=== PATIENT | female | born 1980 | race American Indian/Alaskan Native ===

== ENCOUNTER 2017-09-11 16:49 | Emergency (ER) | payer MEDICAID ==
--- NOTE | 2017-09-11 19:05 | XRay Report ---
FINAL REPORT EXAM: XR HAND 3+V LT HISTORY: injury, pain TECHNIQUE: Three views left hand Comparison: None FINDINGS: The region of pain is not demarcated. There appears to be a comminuted fracture of the base of the 4th metacarpal of the junction with the hamate. There is mild soft tissue swelling over the hypo thenar eminence. There is mild irregularity of the base of the 2nd metacarpal which does not persist on the oblique image and is therefore likely artifactual. All of the exam images were performed portably. The distal digits are intact. There is calcification along the palmar aspect of the 1st proximal phalanx. There is erosion of the radial aspect of the 2nd and 3rd metacarpal heads. IMPRESSION: Portable exam. There appears to be comminuted fracture of the base of the 4th metacarpal at the junction with the hamate. Recommend nonportable exam follow-up or cross-sectional imaging. Erosion of the 2nd and 3rd digit metacarpal heads along the radial aspect. This finding can be compatible with rheumatoid arthritis. Recommend correlation clinically.
[2017-09-12] MEDS ORDERED: TYLENOL PO ONE (03:03)
[2017-09-12] MEDS ORDERED: MOTRIN PO ONE (03:03)
--- NOTE | 2017-09-12 04:37 | Emergency Department Report ---
ED General Adult HPI - General Chief complaint: Extremity Injury, Upper Stated complaint: LEFT HAND PAIN Time Seen by Provider: 09/12/17 02:50 Source: patient Mode of arrival: Ambulatory Limitations: No Limitations - History of Present Illness Initial comments: Patient is a 36-year-old female no suicidal past medical history who presents with left hand pain. 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 moving makes it worse nothing makes it better. He states that she has an achy type of pain and it occurred somewhat after the fall. Patient still able to use her hand to write however when she is working and she has pain. Patient denies having any injury to any other area of her body. Severity scale (0 -10): 10 - Related Data Home Medications Medication Instructions Recorded Confirmed Last Taken Ferric Sulfate 325 mg PO BID 06/03/13 09/28/13 09/28/13 Previous Rx's Medication Instructions Recorded Last Taken Type Methocarbamol [Robaxin] 750 mg PO BID #10 tab 09/29/13 Unknown Rx HYDROcodone/ACETAMINOPHEN [[place] 1 each PO Q6H PRN #20 tablet 03/02/14 Unknown Rx 5/325 Tablet] Ibuprofen [Motrin] 600 mg PO Q8H PRN #50 tablet 02/11/16 Unknown Rx traMADol [Ultram 50 MG tab] 50 mg PO Q6HR PRN #12 tablet 02/11/16 Unknown Rx HYDROcodone/APAP 5-325 [[place] 1 each PO Q6HR PRN #15 tablet 09/12/17 Unknown Rx 5/325] Naproxen 250 mg PO BID #20 tablet 09/12/17 Unknown Rx Allergies Allergy/AdvReac Type Severity Reaction Status Date / Time No Known Allergies Allergy Verified 09/11/17 16:57 ED Review of Systems ROS: Stated complaint: LEFT HAND PAIN Other details as noted in HPI Constitutional: denies: chills, fever Eyes: denies: eye pain, eye discharge, vision change ENT: denies: ear pain, throat pain Respiratory: denies: cough, shortness of breath, wheezing Cardiovascular: denies: chest pain, palpitations Endocrine: no symptoms reported Gastrointestinal: denies: abdominal pain, nausea, diarrhea Genitourinary: denies: urgency, dysuria, discharge Musculoskeletal: as per HPI. denies: back pain, joint swelling, arthralgia Skin: denies: rash, lesions Neurological: denies: headache, weakness, paresthesias Psychiatric: denies: anxiety, depression Hematological/Lymphatic: denies: easy bleeding, easy bruising ED Past Medical Hx - Past Medical History Previous Medical History?: No Additional medical history: Anemia - Surgical History Additional Surgical History: Gastric bypass-2008, c section x2 - Social History Smoking Status: Never Smoker Substance Use Type: None - Medications Home Medications: Home Medications Medication Instructions Recorded Confirmed Last Taken Type Ferric Sulfate 325 mg PO BID 06/03/13 09/28/13 09/28/13 History Methocarbamol [Robaxin] 750 mg PO BID #10 tab 09/29/13 Unknown Rx HYDROcodone/ACETAMINOPHEN [[place] 1 each PO Q6H PRN #20 tablet 03/02/14 Unknown Rx 5/325 Tablet] Ibuprofen [Motrin] 600 mg PO Q8H PRN #50 tablet 02/11/16 Unknown Rx traMADol [Ultram 50 MG tab] 50 mg PO Q6HR PRN #12 tablet 02/11/16 Unknown Rx HYDROcodone/APAP 5-325 [[place] 1 each PO Q6HR PRN #15 tablet 09/12/17 Unknown Rx 5/325] Naproxen 250 mg PO BID #20 tablet 09/12/17 Unknown Rx ED Physical Exam - General Limitations: No Limitations General appearance: alert, in no apparent distress - Head Head exam: Present: atraumatic, normocephalic - Eye Eye exam: Present: normal appearance - ENT ENT exam: Present: mucous membranes moist - Neck Neck exam: Present: normal inspection - Respiratory Respiratory exam: Present: normal lung sounds bilaterally. Absent: respiratory distress - Cardiovascular Cardiovascular Exam: Present: regular rate, normal rhythm. Absent: systolic murmur, diastolic murmur, rubs, gallop - GI/Abdominal GI/Abdominal exam: Present: soft, normal bowel sounds - Extremities Exam Extremities exam: Present: other (fourth metacarpal tenderness) - Back Exam Back exam: Present: normal inspection - Neurological Exam Neurological exam: Present: alert, oriented X3 - Psychiatric Psychiatric exam: Present: normal affect, normal mood - Skin Skin exam: Present: warm, dry, intact, normal color. Absent: rash ED Course Vital Signs 09/11/17 09/12/17 09/12/17 16:58 03:22 03:24 Temperature 98.5 F Pulse Rate 85 Respiratory 18 18 18 Rate Blood Pressure 127/81 O2 Sat by Pulse 100 Oximetry - Orthopedic Splinting/Casting Injury #1 Side: left Upper Extremity Injury Location: hand Upper Extremity Immobilizer: ulnar gutter Additional Comments: Patient tolerated procedure well. ED Medical Decision Making - Radiology Data Radiology results: report reviewed, image reviewed Xray left hand: comminuted fracture of fourth metacarpal - Medical Decision Making Chief medical diagnosis: Fourth metacarpal fracture Differential medical diagnosis: Osteoarthritis, metacarpal fracture, nerve injury next I will get X-RAY, ORAL PAIN MEDICATION and splint the patient's wrist. Patient is feeling better with splint on I will give patient f/u with orthopedic surgeon and I will send patient home. Additional verbal discharge instructions were given. Patient agrees with the plan Critical care attestation.: If time is entered above; I have spent that time in minutes in the direct care of this critically ill patient, excluding procedure time. ED Disposition Clinical Impression: Fracture of fourth metacarpal bone Qualifiers: Encounter type: initial encounter Fracture type: closed Metacarpal location: base Fracture alignment: nondisplaced Laterality: left Qualified Code(s): S62.345A - Nondisplaced fracture of base of fourth metacarpal bone, left hand, initial encounter for closed fracture Fall Qualifiers: Encounter type: initial encounter Qualified Code(s): W19.XXXA - Unspecified fall, initial encounter Disposition: DC- TO HOME OR SELFCARE Is pt being admited?: No Does the pt Need Aspirin: No Condition: Stable Instructions: Hand Fracture (ED) Prescriptions: HYDROcodone/APAP 5-325 [[place] 5/325] 1 each PO Q6HR PRN #15 tablet PRN Reason: Pain Naproxen 250 mg PO BID #20 tablet Referrals: BRIANA RIVER MD [Primary Care Provider] - 3-5 Days NICHOLE POWER MD [Staff Physician] - 3-5 Days MANDY FENG MD [Staff Physician] - 3-5 Days CAITY GORMAN MD [Staff Physician] - 3-5 Days Forms: Work/School Release Form(ED)
[2017-09-12 04:47] VITALS: BP 125/78
== END 2017-09-12 05:15 | disposition home or self-care (01) ==
LOC: ED 16:49
DX: S62.345A Nondisplaced fracture of base of fourth metacarpal bone, left hand, initial encounter for closed fracture (principal); Z98.84 Bariatric surgery status; W19.XXXA Unspecified fall, initial encounter; Y93.89 Activity, other specified; Y99.8 Other external cause status; Y92.89 Other specified places as the place of occurrence of the external cause
CPT/HCPCS: 99283

== ENCOUNTER 2017-12-22 18:12 | Emergency (ER) | payer MEDICAID ==
[2017-12-22 19:17] VITALS: BP 131/82
[2017-12-22] MEDS ORDERED: TYLENOL PO ONE (19:34)
[2017-12-22] MEDS ORDERED: FLEXERIL PO ONE (19:34)
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
[2017-12-22 19:50] LABS: Bacteria,Urine 2+ /HPF (Negative); Bilirubin,Urine NEG (Negative); Blood,Urine NEG (Negative); Color,Urine Yellow (Yellow); Protein,Urine <15 mg/dL mg/dL (Negative); Urobilinogen,Urine < 2.0 mg/dL (<2.0)
== END 2017-12-22 20:00 | disposition home or self-care (01) ==
LOC: ED 18:12
DX: O26.893 Other specified pregnancy related conditions, third trimester (principal); M54.9 Dorsalgia, unspecified; O99.013 Anemia complicating pregnancy, third trimester; Z3A.33 33 weeks gestation of pregnancy; V87.7XXA Person injured in collision between other specified motor vehicles (traffic), initial encounter; Y93.89 Activity, other specified; Y92.89 Other specified places as the place of occurrence of the external cause; Y99.8 Other external cause status
CPT/HCPCS: 81001; 99283

== ENCOUNTER 2017-12-22 21:11 | Outpatient (CLI) | payer MEDICAID ==
[2017-12-22 23:03] LABS: Hematocrit 30.5 % (30.3-42.9); Hemoglobin 9.8 gm/dl (10.1-14.3); Mean Corpuscular HGB Conc 32 % (30-34); Mean Corpuscular Hemoglobin 28 pg (28-32); Mean Corpuscular Volume 87 fl (79-97); Platelet Count 196 K/mm3 (140-440); Red Blood Count 3.49 M/mm3 (3.65-5.03); Red Cell Distribution Width 16.3 % (13.2-15.2)
[2017-12-22 23:20] VITALS: BP 123/84
--- NOTE | 2017-12-22 23:43 | Ultrasound Report ---
FINAL REPORT EXAM: US OB CLINICAL INDICATIONS: PLACENTA SCAN FINDINGS: Real-time ultrasound of the pelvis was performed with attention to the gravid uterus and placenta. There is an anterior placenta, grade 1. There is no evidence of placental abruption or placenta previa. The fetus lies in transverse lie. cardiac activity is present at 140 beats per minute. Amniotic fluid index is 10.3 cm which is within normal limits. IMPRESSION: NO PLACENTAL ABRUPTION
== END 2017-12-23 00:10 | disposition home or self-care (01) ==
LOC: TRG 21:11 → LD 21:17 → TRG 12-23 00:10
PROVIDERS: ATTEND Obstetrics & Gynecology
DX: O09.523 Supervision of elderly multigravida, third trimester (principal); O47.03 False labor before 37 completed weeks of gestation, third trimester; Z3A.33 33 weeks gestation of pregnancy
CPT/HCPCS: 36415; 59025; 76815; 85027; 86850; 86900; 86901

== ENCOUNTER 2018-02-17 12:57 | Emergency (ER) | payer MEDICAID ==
--- NOTE | 2018-02-17 14:05 | Emergency Department Report ---
Chief Complaint: Abdominal Pain Stated Complaint: PAIN AT Time Seen by Provider: 02/17/18 13:55 - HPI History of Present Illness: 37-year-old AA female presents to the emergency department with complaint of pain at the site that she had done from February 01. She says that she followed up with the [facility], but not the particular surgeon, last and says that she brought up the issue with her discomfort but "they did not do much about it." She previously had been on some Percocet but that has run out. To deal with the pain she says she has been taking extra 800 mg ibuprofen, some 2 at a time. She denies any bleeding, discharge or redness at the incision site. She denies any fever, nausea, vomiting. - ROS Review of Systems: Positive for abdominal pain Negative for nausea, vomiting, vaginal bleeding or discharge, dysuria - Exam Vital Signs: Vital Signs 02/17/18 02/17/18 13:23 13:51 Temperature 99.5 F Pulse Rate 77 Respiratory 16 16 Rate Blood Pressure 138/80 O2 Sat by Pulse 100 Oximetry Physical Exam: Heart and lungs sounds are normal to auscultation. There is some repeat is tenderness to palpation to the lower abdominal wall. MSE screening note: Focused history and physical exam performed. Due to findings the following was ordered: I will order a CBC and a BMP. Potentially the patient will have a 2 view abdominal x-ray. ED Disposition for MSE Condition: Stable Instructions: Abdominal Pain (ED)
[2018-02-17 14:31] LABS: Bacteria,Urine 1+ /HPF (Negative); Bilirubin,Urine NEG (Negative); Blood,Urine LG (Negative); Color,Urine Yellow (Yellow); Mucus,Urine FEW /HPF; Urobilinogen,Urine < 2.0 mg/dL (<2.0)
[2018-02-17] MEDS ORDERED: PERCOCET 5/325 PO ONE (14:35)
[2018-02-17 15:08] LABS: Basophils % (Auto) 0.3 % (0.0-1.8); Eosinophils # (Auto) 0.2 K/mm3 (0.0-0.4); Eosinophils % (Auto) 2.4 % (0.0-4.3); Hemoglobin 10.7 gm/dl (10.1-14.3); Lymphocytes # (Auto) 1.4 K/mm3 (1.2-5.4); Lymphocytes % (Auto) 20.9 % (13.4-35.0); Mean Corpuscular HGB Conc 33 % (30-34); Mean Corpuscular Hemoglobin 28 pg (28-32); Mean Corpuscular Volume 84 fl (79-97); Monocytes # (Auto) 0.4 K/mm3 (0.0-0.8); Monocytes % (Auto) 6.7 % (0.0-7.3); Platelet Count 284 K/mm3 (140-440); Red Cell Distribution Width 15.4 % (13.2-15.2)
[2018-02-17 15:18] LABS: BUN/Creatinine Ratio 12; Blood Urea Nitrogen 6 mg/dL (7-17); Calcium 8.4 mg/dL (8.4-10.2); Hemolysis Index 4
[2018-02-17] MEDS ORDERED: NACL 0.9% 1000 ML 1,000 ML IV ONE (16:22)
[2018-02-17] MEDS ORDERED: TORADOL IV ONE (16:56)
[2018-02-17 17:51] VITALS: BP 151/81
--- NOTE | 2018-02-17 18:00 | Emergency Department Report ---
ED Abdominal Pain HPI - General Chief Complaint: Abdominal Pain Stated Complaint: PAIN AT Time Seen by Provider: 02/17/18 13:55 Source: patient Mode of arrival: Ambulatory Limitations: No Limitations - History of Present Illness Initial Comments: This is a 37-year-old female nontoxic, well nourished in appearance, no acute signs of distress presents to the ED with c/o of pelvic pain status post C- section that was done on 02/01/2018. 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 Patient stated pain is aching and worsening when touched to the area. Patient stated she was prescribed antibiotics that she finished. Patient denies any radiation of pain. Patient denies any nausea, vomiting, chest pain, shortness of breathe, fever, chills, headache, stiff neck, back pain, urinary symptoms, numbness or tingling. Patient denies any redness or swelling or pus in the surgical site. Patient denies any allergies or PMH. MD Complaint: abdominal pain -: week(s) (2) Radiation: none Migration to: no migration Severity scale (0 -10): 8 Quality: aching Consistency: constant Improves With: rest Worsens With: other (palpation) Associated Symptoms: denies other symptoms. denies: nausea, vomiting, diarrhea , fever, chills, constipation, dysuria, hematemesis, hematochezia, melena, hematuria, anorexia, syncope - Related Data Home Medications Medication Instructions Recorded Confirmed Last Taken Ferric Sulfate 325 mg PO BID 06/03/13 12/23/17 12/22/17 Pnv,Calcium 72/Iron/Folic Acid 12/23/17 12/22/17 08:30 [Pnv Plus Multivit Tab] Previous Rx's Medication Instructions Recorded Last Taken Type Methocarbamol [Robaxin] 750 mg PO BID #10 tab 09/29/13 Unknown Rx HYDROcodone/ACETAMINOPHEN [[place] 1 each PO Q6H PRN #20 tablet 03/02/14 Unknown Rx 5/325 Tablet] Ibuprofen [Motrin] 600 mg PO Q8H PRN #50 tablet 02/11/16 Unknown Rx traMADol [Ultram 50 MG tab] 50 mg PO Q6HR PRN #12 tablet 02/11/16 12/22/17 08: 30 Rx HYDROcodone/APAP 5-325 [[place] 1 each PO Q6HR PRN #15 tablet 09/12/17 Unknown Rx 5/325] Naproxen 250 mg PO BID #20 tablet 09/12/17 Unknown Rx Cyclobenzaprine [Flexeril 10 MG 10 mg PO ONCE #10 tablet 12/22/17 Unknown Rx TAB] Acetaminophen/Codeine [Tylenol 1 tab PO Q6H PRN #15 tab 02/17/18 Unknown Rx /Codeine # 3 tab] Ciprofloxacin HCl [Ciprofloxacin 500 mg PO Q12HR #14 tab 02/17/18 Unknown Rx TAB] Ibuprofen [Motrin] 600 mg PO Q8H PRN #30 tablet 02/17/18 Unknown Rx Allergies Allergy/AdvReac Type Severity Reaction Status Date / Time No Known Allergies Allergy Verified 09/11/17 16:57 ED Review of Systems ROS: Stated complaint: PAIN AT Other details as noted in HPI Constitutional: denies: chills, fever Eyes: denies: eye pain, eye discharge, vision change ENT: denies: ear pain, throat pain Respiratory: denies: cough, shortness of breath, wheezing Cardiovascular: denies: chest pain, palpitations Endocrine: no symptoms reported Gastrointestinal: abdominal pain. denies: nausea, diarrhea Genitourinary: denies: urgency, dysuria, discharge Musculoskeletal: denies: back pain, joint swelling, arthralgia Skin: denies: rash, lesions Neurological: denies: headache, weakness, paresthesias Psychiatric: denies: anxiety, depression Hematological/Lymphatic: denies: easy bleeding, easy bruising ED Past Medical Hx - Past Medical History Hx Hypertension: No Hx Diabetes: No Hx Deep Vein Thrombosis: No Hx Renal Disease: No Hx Sickle Cell Disease: No Hx Seizures: No Hx Asthma: No Hx HIV: No Additional medical history: Anemia - Surgical History Additional Surgical History: Gastric bypass-2007, c section x3 - Social History Smoking Status: Never Smoker Substance Use Type: None - Medications Home Medications: Home Medications Medication Instructions Recorded Confirmed Last Taken Type Ferric Sulfate 325 mg PO BID 06/03/13 12/23/17 12/22/17 History Methocarbamol [Robaxin] 750 mg PO BID #10 tab 09/29/13 12/23/17 Unknown Rx HYDROcodone/ACETAMINOPHEN [[place] 1 each PO Q6H PRN #20 tablet 03/02/14 Unknown Rx 5/325 Tablet] Ibuprofen [Motrin] 600 mg PO Q8H PRN #50 tablet 02/11/16 12/23/17 Unknown Rx traMADol [Ultram 50 MG tab] 50 mg PO Q6HR PRN #12 tablet 02/11/16 12/23/1712/22 08:30 Rx HYDROcodone/APAP 5-325 [[place] 1 each PO Q6HR PRN #15 tablet 09/12/17 12/23/17 Unknown Rx 5/325] Naproxen 250 mg PO BID #20 tablet 09/12/17 12/23/17 Unknown Rx Cyclobenzaprine [Flexeril 10 MG 10 mg PO ONCE #10 tablet 12/22/17 12/23/17 Unknown Rx TAB] Pnv,Calcium 72/Iron/Folic Acid 12/23/17 12/22/17 08:30 History [Pnv Plus Multivit Tab] Acetaminophen/Codeine [Tylenol 1 tab PO Q6H PRN #15 tab 02/17/18 Unknown Rx /Codeine # 3 tab] Ciprofloxacin HCl [Ciprofloxacin 500 mg PO Q12HR #14 tab 02/17/18 Unknown Rx TAB] Ibuprofen [Motrin] 600 mg PO Q8H PRN #30 tablet 02/17/18 Unknown Rx ED Physical Exam - General Limitations: No Limitations General appearance: alert, in no apparent distress - Head Head exam: Present: atraumatic, normocephalic - Eye Eye exam: Present: normal appearance Pupils: Present: normal accommodation - ENT ENT exam: Present: normal exam, mucous membranes moist - Neck Neck exam: Present: normal inspection, full ROM. Absent: tenderness, meningismus, lymphadenopathy - Respiratory Respiratory exam: Present: normal lung sounds bilaterally. Absent: respiratory distress, wheezes, rales, rhonchi, stridor, chest wall tenderness, accessory muscle use, decreased breath sounds, prolonged expiratory - Cardiovascular Cardiovascular Exam: Present: regular rate, normal rhythm, normal heart sounds. Absent: bradycardia, tachycardia, irregular rhythm, systolic murmur, diastolic murmur, rubs, gallop - GI/Abdominal GI/Abdominal exam: Present: soft, tenderness (incisonal region), normal bowel sounds, other (well healing incision site with no dagoberto present. No deshince noted. No swelling, redness, pus, or drainage. No surrounding cellulitis noted.) . Absent: distended, guarding, rebound, rigid, diminished bowel sounds - Expanded GI/Abdominal Exam Expanded GI/Abdominal exam: Absent: psoas sign, obturator sign, heel tap sign, Amaro's sign, Rovsing's sign, tenderness at Mcbur[place]'s Point, ascites - Rectal Rectal exam: Present: deferred - Extremities Exam Extremities exam: Present: normal inspection, full ROM, normal capillary refill - Back Exam Back exam: Present: normal inspection, full ROM - Neurological Exam Neurological exam: Present: alert, oriented X3, normal gait - Psychiatric Psychiatric exam: Present: normal affect, normal mood - Skin Skin exam: Present: warm, dry, intact, normal color. Absent: rash ED Course Vital Signs 02/17/18 02/17/18 02/17/18 13:23 13:51 14:39 Temperature 99.5 F Pulse Rate 77 Respiratory 16 16 16 Rate Blood Pressure 138/80 Blood Pressure [Left] O2 Sat by Pulse 100 Oximetry 02/17/18 02/17/18 17:05 17:50 Temperature 100 F H Pulse Rate 72 Respiratory 16 16 Rate Blood Pressure Blood Pressure 151/81 [Left] O2 Sat by Pulse 100 Oximetry - Reevaluation(s) Reevaluation #1: 02/17/18 18:01 Patient is speaking in full sentences with no signs of distress noted. - Consultations Consultation #1: 02/17/18 18:01 Patient has been consulted with Dr. Gentile about patient history, physical exam, and labs/CT results and examined and screened patient and agrees to ED plan of care and discharge plan of care. ED Medical Decision Making - Lab Data Result diagrams: 02/17/18 14:23 02/17/18 14:23 - Medical Decision Making This is a 37-year-old female that presents with abdominal pain, UTI, and constipation. Patient stable was examined by me. There is slight abdominal tenderness in the incisional site. No rebound tenderness. Labs obtained. No signs cellulitis. Well healing surgical site. Xray of abdomen and CT abdomen/ pelvis with contrast obtained and dictated by the radiologist Mike Rider from [facility] and report faxed with impression of mild constipation and a large uterus with prominent endometrial canal or endometrium. Patient received 1L of normal saline and Toradol which patient stated symptoms has resolved and subsided. A by mouth challenge of apple juice had been obtained and patient tolerated well with no nausea vomiting. Patient discharged with Cipro and Tylenol with codeine and was instructed not to operate any machinery due to possible drowsiness.. Patient was instructed to increase hydration. Patient was referred to Follow-up with a SAP INTEGRATION ARCHITECT Doctor in 3-5 days or if symptoms worsen and continue return to emergency room as soon as possible. At time of discharge, the patient does not seem toxic or ill in appearance. No acute signs of distress noted. Patient agrees to discharge treatment plan of care. No further questions noted by the patient. Critical care attestation.: If time is entered above; I have spent that time in minutes in the direct care of this critically ill patient, excluding procedure time. ED Disposition Clinical Impression: Pain at surgical site UTI (urinary tract infection) Qualifiers: Urinary tract infection type: site unspecified Hematuria presence: with hematuria Qualified Code(s): N39.0 - Urinary tract infection, site not specified ; R31.9 - Hematuria, unspecified Abdominal pain Qualifiers: Abdominal location: unspecified location Qualified Code(s): R10.9 - Unspecified abdominal pain Disposition: - TO HOME OR SELFCARE Is pt being admited?: No Does the pt Need Aspirin: No Condition: Stable Instructions: Abdominal Pain (ED), Urinary Tract Infection in Women (ED), Acetaminophen/Codeine (By mouth) Additional Instructions: Follow-up with a SAP INTEGRATION ARCHITECT doctor and surgeon in 3-5 days or if symptoms worsen and continue return to emergency room as soon as possible. Prescriptions: Acetaminophen/Codeine [Tylenol /Codeine # 3 tab] 1 tab PO Q6H PRN #15 tab PRN Reason: Pain Ciprofloxacin HCl [Ciprofloxacin TAB] 500 mg PO Q12HR #14 tab Ibuprofen [Motrin] 600 mg PO Q8H PRN #30 tablet PRN Reason: Pain Referrals: PRIMARY CAREMD [Primary Care Provider] - 3-5 Days CR HARRISON MD [Staff Physician] - 3-5 Days [facility] [Provider Group] - 3-5 Days [facility] [place] [Outside] - 3-5 Days [facility] [Outside] - 3-5 Days Forms: Work/School Release Form(ED)
--- NOTE | 2018-02-18 14:30 | Cat Scan Report ---
FINAL REPORT EXAM: CT ABDOMEN PELVIS W CON HISTORY: abd pain TECHNIQUE: CT of the abdomen and pelvis with IV contrast. Coronal and sagittal reconstructed imaging provided. PRIORS: None currently available. FINDINGS: ABDOMEN: Distended gallbladder. No wall thickening. Postsurgical changes at the stomach. Stomach is otherwise unremarkable. Liver, spleen, pancreas, adrenals, and kidneys are unremarkable. There is no abdominal aortic aneurysm. No dissection. Mild atherosclerotic disease noted. IVC is unremarkable. There is no periaortic or retroperitoneal adenopathy or mass. [id number] stool. No wall thickening or inflammatory changes. Terminal ilium is unremarkable. Appendix is normal. Small bowel loops are unremarkable. No obstructive pattern. No free air. No free fluid. Mesentery is unremarkable. Diastasis recti with a broad-based protrusion. Superimposed fat containing umbilical hernia. No strangulation. PELVIS: Enlarged heterogeneous uterus identified. Endometrial canal is distended or the endometrium is thickened but not well evaluated on CT scan. Bladder is unremarkable. There is no pelvic mass or adenopathy. Inguinal regions are unremarkable. Bones: No suspicious osseous lesions on this limited examination of the skeleton. Metastatic disease better evaluated with bone scan. IMPRESSION: Possible mild constipation. Enlarged heterogeneous uterus with prominent endometrial canal or endometrium. Further imaging with a pelvic ultrasound is recommended if clinically indicated. Differential diagnosis does include uterus, retained products of conception, or uterine inflammation/infection. Otherwise, no acute bowel findings.
--- NOTE | 2018-02-18 14:30 | XRay Report ---
FINAL REPORT EXAM: XR ABDOMEN 2V HISTORY: Abd pain TECHNIQUE: 3 views of the abdomen. PRIORS: None currently available. FINDINGS: Bowel gas appearance is nonspecific and non-distended. There is no pneumoperitoneum. There is no air fluid level. There is no obstructive pattern. Mild stool is present. There are no suspicious calcifications overlying the renal shadows. IMPRESSION: Nonspecific nonobstructive bowel gas pattern.
== END 2018-02-17 18:27 | disposition home or self-care (01) ==
LOC: ED 12:57
DX: G89.18 Other acute postprocedural pain (principal); N39.0 Urinary tract infection, site not specified; R31.9 Hematuria, unspecified; R10.9 Unspecified abdominal pain; D64.9 Anemia, unspecified
CPT/HCPCS: 36415; 74019; 74177; 80048; 81001; 85025; 96374; 99284; J1885; J7030; Q9967

== ENCOUNTER 2018-05-04 15:45 | Emergency (ER) | payer SELFPAY ==
[2018-05-04 17:55] LABS: HCG Qualitative,Urine Negative (Negative)
[2018-05-04 18:00] LABS: Bilirubin,Urine NEG (Negative); Blood,Urine NEG (Negative); Color,Urine Yellow (Yellow); Mucus,Urine 1+ /HPF
[2018-05-04] MEDS ORDERED: TORADOL IM ONE (20:52)
--- NOTE | 2018-05-04 20:55 | Emergency Department Report ---
ED Abdominal Pain HPI - General Chief Complaint: Abdominal Pain Stated Complaint: C SECTION PAIN, SWELLING IN FINGERS Time Seen by Provider: 05/04/18 20:34 Source: patient Mode of arrival: Ambulatory Limitations: No Limitations - History of Present Illness Initial Comments: 37-year-old -[place] female comes to the emergency room complaining of pain around her right side of her scar that started yesterday after lifting heavy boxes at work. Patient states that she had a on 2017. Patient also complains of bilateral wrists and hand pain. She states that the pain is worse in the right wrist. This is been going on for one month and the pain is waking her up. Patient reports that she had taken Tylenol last dose was yesterday. 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 Patient reports that her scar is well-healed. She reports she currently takes iron. She has no known drug allergies past medical history of diabetes but no longer on meds and she's had a bypass surgery in 2007. She's had 3 C-sections. She does have a primary care provider that she reports she hasn't followed up with her in the last 4-5 months. Patient denies any fever no nausea no vomiting no diarrhea no constipation. She denies any discharge coming from her incision site. She denies any urinary symptoms such as dysuria hematuria. -: days(s) (1 abdomen pain), month(s) (1 bilateral hand pain/wrist pain) Radiation: none Severity scale (0 -10): 7 Quality: stabbing (incisional site from ), aching (bilateral hand and wrist pain) Consistency: constant (bilateral hands/wrists), intermittent (incisional C- section site) Improves With: nothing Worsens With: other (lifting heavy objects) Associated Symptoms: denies other symptoms. denies: nausea, vomiting, diarrhea , fever, chills, constipation, dysuria, hematuria Treatments Prior to Arrival: other (Tylenol yesterday) - Related Data LMP Date: 04/23/18 Home Medications Medication Instructions Recorded Confirmed Last Taken Ferric Sulfate 325 mg PO BID 06/03/13 12/23/17 12/22/17 Pnv,Calcium 72/Iron/Folic Acid 12/23/17 12/22/17 08:30 [Pnv Plus Multivit Tab] Previous Rx's Medication Instructions Recorded Last Taken Type Methocarbamol [Robaxin] 750 mg PO BID #10 tab 09/29/13 Unknown Rx HYDROcodone/ACETAMINOPHEN [[place] 1 each PO Q6H PRN #20 tablet 03/02/14 Unknown Rx 5/325 Tablet] Ibuprofen [Motrin] 600 mg PO Q8H PRN #50 tablet 02/11/16 Unknown Rx traMADol [Ultram 50 MG tab] 50 mg PO Q6HR PRN #12 tablet 02/11/16 12/22/17 08: 30 Rx HYDROcodone/APAP 5-325 [[place] 1 each PO Q6HR PRN #15 tablet 09/12/17 Unknown Rx 5/325] Naproxen 250 mg PO BID #20 tablet 09/12/17 Unknown Rx Cyclobenzaprine [Flexeril 10 MG 10 mg PO ONCE #10 tablet 12/22/17 Unknown Rx TAB] Acetaminophen/Codeine [Tylenol 1 tab PO Q6H PRN #15 tab 02/17/18 Unknown Rx /Codeine # 3 tab] Ciprofloxacin HCl [Ciprofloxacin 500 mg PO Q12HR #14 tab 02/17/18 Unknown Rx TAB] Ibuprofen [Motrin] 600 mg PO Q8H PRN #30 tablet 02/17/18 Unknown Rx Naproxen [Naprosyn] 500 mg PO BID #20 tablet 05/04/18 Unknown Rx Allergies Allergy/AdvReac Type Severity Reaction Status Date / Time No Known Allergies Allergy Verified 09/11/17 16:57 ED Review of Systems ROS: Stated complaint: C SECTION PAIN, SWELLING IN FINGERS Other details as noted in HPI Gastrointestinal: other (incisional site) Musculoskeletal: arthralgia (bilateral wrist and hand) ED Past Medical Hx - Past Medical History Previous Medical History?: Yes Hx Hypertension: No Hx Diabetes: No Hx Deep Vein Thrombosis: No Hx Renal Disease: No Hx Sickle Cell Disease: No Hx Seizures: No Hx Asthma: No Hx HIV: No Additional medical history: Anemia - Surgical History Past Surgical History?: Yes Additional Surgical History: Gastric bypass-2007, c section x3 - Social History Smoking Status: Never Smoker Substance Use Type: None - Medications Home Medications: Home Medications Medication Instructions Recorded Confirmed Last Taken Type Ferric Sulfate 325 mg PO BID 06/03/13 12/23/17 12/22/17 History Methocarbamol [Robaxin] 750 mg PO BID #10 tab 09/29/13 12/23/17 Unknown Rx HYDROcodone/ACETAMINOPHEN [[place] 1 each PO Q6H PRN #20 tablet 03/02/14 Unknown Rx 5/325 Tablet] Ibuprofen [Motrin] 600 mg PO Q8H PRN #50 tablet 02/11/16 12/23/17 Unknown Rx traMADol [Ultram 50 MG tab] 50 mg PO Q6HR PRN #12 tablet 02/11/16 12/23/1712/22 08:30 Rx HYDROcodone/APAP 5-325 [[place] 1 each PO Q6HR PRN #15 tablet 09/12/17 12/23/17 Unknown Rx 5/325] Naproxen 250 mg PO BID #20 tablet 09/12/17 12/23/17 Unknown Rx Cyclobenzaprine [Flexeril 10 MG 10 mg PO ONCE #10 tablet 12/22/17 12/23/17 Unknown Rx TAB] Pnv,Calcium 72/Iron/Folic Acid 12/23/17 12/22/17 08:30 History [Pnv Plus Multivit Tab] Acetaminophen/Codeine [Tylenol 1 tab PO Q6H PRN #15 tab 02/17/18 Unknown Rx /Codeine # 3 tab] Ciprofloxacin HCl [Ciprofloxacin 500 mg PO Q12HR #14 tab 02/17/18 Unknown Rx TAB] Ibuprofen [Motrin] 600 mg PO Q8H PRN #30 tablet 02/17/18 Unknown Rx Naproxen [Naprosyn] 500 mg PO BID #20 tablet 05/04/18 Unknown Rx ED Physical Exam - General Limitations: No Limitations General appearance: alert, in no apparent distress - Head Head exam: Present: atraumatic, normocephalic - Eye Eye exam: Present: EOMI - ENT ENT exam: Present: mucous membranes moist - Respiratory Respiratory exam: Present: normal lung sounds bilaterally. Absent: respiratory distress - Cardiovascular Cardiovascular Exam: Present: regular rate, normal rhythm. Absent: systolic murmur, diastolic murmur, rubs, gallop - GI/Abdominal GI/Abdominal exam: Present: soft, tenderness (right incisional), other (patient has malodorous discharge under the pannus, incision site looks well healed nonerythematous not edematous). Absent: distended - Expanded Upper Extremity Exam Left Hand Wrist exam: Present: full ROM, tenderness, other (positive Tinel's and Phalen test ) Neuro motor exam: Present: wrist extension intact, thumb opposition intact, thumb IP flexion intact, thumb adduction intact, fingers 2-5 abduction intact Neurosensory exam: Present: radial nerve intact (tenderness tap test), ulnar nerve intact, median nerve intact Vascular: Present: normal capillary refill. Absent: vascular compromise Right Hand Wrist exam: Present: full ROM, tenderness, other (positive Tinel's and Phalen test ). Absent: swelling, laceration, ecchymosis Neurosensory exam: Present: 2-point discrimination, radial nerve intact ( positive tap Tests), ulnar nerve intact, median nerve intact Vascular: Present: normal capillary refill. Absent: vascular compromise - Neurological Exam Neurological exam: Present: alert, oriented X3 - Psychiatric Psychiatric exam: Present: normal affect, normal mood ED Course Vital Signs 05/04/18 15:54 Temperature 98.9 F Pulse Rate 92 H Respiratory 16 Rate Blood Pressure 146/76 O2 Sat by Pulse 99 Oximetry ED Medical Decision Making - Medical Decision Making Patient has been evaluated by this provider fast track. Toradol injection 30 mg IM for pain management. We'll discharge patient with naproxen 500 mg twice a day. Discussed the patient to refrain from lifting heavy objects greater than 12 pounds for the next 10 days. Patient to follow-up with orthopedist in regards to possible carpal tunnel syndrome. Discussed patient if she continues to have tenderness at her incisional site that she needs to follow up with her general surgeon or her primary care provider. H and verbalized understanding Critical care attestation.: If time is entered above; I have spent that time in minutes in the direct care of this critically ill patient, excluding procedure time. ED Disposition Clinical Impression: Carpal tunnel syndrome on both sides Abdominal muscle strain Qualifiers: Encounter type: initial encounter Qualified Code(s): S39.011A - Strain of muscle, fascia and tendon of abdomen, initial encounter Disposition: TO HOME OR SELFCARE Is pt being admited?: No Does the pt Need Aspirin: No Condition: Stable Instructions: Abdominal Pain (ED) Additional Instructions: Please take pain medication as prescribed and as needed. Please increase her fluid intake by 1 L. Please eat prior to taking pain medication. If her symptoms persist please follow up with orthopedist and your primary care provider I have listed several names below for orthopedist providers. Prescriptions: Naproxen [Naprosyn] 500 mg PO BID #20 tablet Referrals: PRIMARY CAREMD [Primary Care Provider] - 3-5 Days CAITY GORMAN MD [Staff Physician] - 3-5 Days YUVAL LEO MD [Staff Physician] - 3-5 Days Forms: Work/School Release Form(ED)
[2018-05-04 21:19] VITALS: BP 139/80
== END 2018-05-04 21:25 | disposition home or self-care (01) ==
LOC: ED 15:45
DX: S39.011A Strain of muscle, fascia and tendon of abdomen, initial encounter (principal); G56.03 Carpal tunnel syndrome, bilateral upper limbs; Z98.890 Other specified postprocedural states; X50.9XXA Other and unspecified overexertion or strenuous movements or postures, initial encounter; Y93.89 Activity, other specified; Y99.8 Other external cause status; Y92.89 Other specified places as the place of occurrence of the external cause
CPT/HCPCS: 81001; 81025; 99283; J1885